=== PATIENT | male | born 1985 | race Two or more races ===

== ENCOUNTER 2018-12-01 20:28 | Emergency (ER) | payer OTHER ==
[~2018-12-01] VITALS: Ht 177.8 cm; Wt 81.6 kg
[2018-12-01] MEDS ORDERED: NKM (20:36)
--- NOTE | 2018-12-01 20:40 | NUR ---
ED Nurse Note: pt walked in c/o irregular heart beat and weakness, pt states he was at work lifting something heavy and all of sudden felt weak and chills, pt reports in 2015 a doctor stated he has irregular heartbeat. pt AA&ox4, gcs=15, skin warm and dry, resp even and unlabored on RA, -n/v/d, ambulates w/ steady gait. will cont monitor.
--- NOTE | 2018-12-01 20:51 | Emergency Room Report ---
History of Present Illness General Chief Complaint: General Complaint Source: Patient Present Illness HPI Patient is a 33-year-old male presented after increased palpitations and chest tightness after smoking a marijuana vape pen. Patient had reportedly been feeling somewhat tired earlier in the day. He had been moving furniture and had prior episode of feeling tired prior to onset of symptoms. He reports having increased alcohol use over the past few days. He denies any significant vomiting or diarrhea. Patient states he currently feels better. He reports having prior history of premature heart contractions. Allergies: Coded Allergies: No Known Allergies (Unverified , 12/01/18) Patient History Past Medical History: see triage record Reviewed Nursing Documentation: PMH: Agreed; PSxH: Agreed Nursing Documentation-PMH Past Medical History: No Stated History Review of Systems All Other Systems: negative except mentioned in HPI Physical Exam Vital Signs Date Time Temp Pulse Resp B/P (MAP) Pulse Ox O2 Delivery O2 Flow Rate FiO2 12/01/18 20:33 98.4 70 16 131/86 (101) 97 Room Air Sp02 EP Interpretation: reviewed, normal General Appearance: normal inspection, well appearing, no apparent distress, alert, GCS 15 Head: atraumatic ENT: normal ENT inspection, hearing grossly normal, normal voice Neck: normal inspection, full range of motion, supple, no bony tend Respiratory: normal inspection, lungs clear, normal breath sounds, no respiratory distress, no retraction, no wheezing Cardiovascular #1: regular rate, rhythm, no edema Gastrointestinal: normal inspection, normal bowel sounds, non tender, soft, no guarding, no hernia Genitourinary: no CVA tenderness Musculoskeletal: normal inspection, back normal, normal range of motion Neurologic: normal inspection, alert, oriented x3, responsive, core carrier III-XII nml as tested, speech normal Psychiatric: normal inspection, judgement/insight normal, mood/affect normal Skin: no rash Medical Decision Making Diagnostic Impression: Primary Impression: Palpitations ER Course Patient presented for palpitations. Differential diagnosis include was not limited to electro light abnormality, myocardial infarction, arrhythmia among others. Because of complexity of patient's case laboratory testing and imaging studies were ordered. EKG Diagnostic Results Rate: normal Rhythm: NSR ST Segments: no acute changes Last Vital Signs Date Time Temp Pulse Resp B/P (MAP) Pulse Ox O2 Delivery O2 Flow Rate FiO2 12/01/18 20:33 98.4 70 16 131/86 (918) 97 Room Air Tam Palafox MD Dec 01, 2018 20:51
[2018-12-01 20:55] VITALS: BP 131/86
--- NOTE | 2018-12-01 20:55 | NUR ---
ED Nurse Note: EKG done at the bedside, reviewed by Dr. Palafox, per ROBERTH cox, pt moved to 6, report given to TREE Dash and endorsed care.
[2018-12-01 21:11] LABS: BASOPHILS % (AUTO) 0.5 % (0.0-2.0); EOSINOPHILS % (AUTO) 1.2 % (0.0-3.0); HEMATOCRIT 45.5 % (42.0-52.0); HEMOGLOBIN 15.4 G/DL (14.2-18.0); LYMPHOCYTES % (AUTO) 23.6 % (20.0-45.0); MEAN CORPUSCULAR VOLUME 94 FL (80-99); MONOCYTES % (AUTO) 6.9 % (1.0-10.0); NEUTROPHILS % (AUTO) 67.9 % (45.0-75.0); PLATELET COUNT 289 K/UL (150-450); RED BLOOD COUNT 4.85 M/UL (4.70-6.10); RED CELL DISTRIBUTION WIDTH 11.8 % (11.6-14.8); WHITE BLOOD COUNT 10.9 K/UL (4.8-10.8)
[2018-12-01 21:15] LABS: ANION GAP 8 mmol/L (5-15); BLOOD UREA NITROGEN 21 mg/dL (7-18); CALCIUM 9.4 MG/DL (8.5-10.1); CARBON DIOXIDE 31 MMOL/L (21-32); CHLORIDE 100 MMOL/L (98-107); CREATININE 1.2 MG/DL (0.55-1.30); POTASSIUM 3.5 MMOL/L (3.5-5.1); SODIUM 139 MMOL/L (136-145)
[2018-12-01 21:32] LABS: ALANINE AMINOTRANSFERASE 27 U/L (12-78); ALBUMIN 4.4 G/DL (3.4-5.0); ALBUMIN/GLOBULIN RATIO 1.4 (1.0-2.7); ALKALINE PHOSPHATASE 63 U/L (46-116); ASPARTATE AMINO TRANSFERASE 27 U/L (15-37); BILIRUBIN,TOTAL 0.5 MG/DL (0.2-1.0); CKMB 0.9 NG/ML (0.0-3.6); CREATINE KINASE 165 U/L (26-308)
--- NOTE | 2018-12-01 22:01 | NUR ---
ED Nurse Note: pt cleared to be d/c per ERMD, pt discharge and aftercare instruction provided, pt advised to follow up with pcp or return to ed if changes in condition, pt education done via discussion and handout, pt advised to increase fluid intake and avoid caffeine, pt verbalized understanding and agrees with plan, vss, ambulatory w/ steady gait, left w/ all belongings. iv d/c and id band removed.
[2018-12-01 22:02] VITALS: BP 130/79
--- NOTE | 2018-12-02 10:53 | Diagnostic Imaging Report ---
Indication: Chest pain Technique: One view of the chest Comparison: none Findings: Heart size is upper limits normal. The lungs and pleural spaces are clear. Impression: No acute process
== END 2018-12-01 22:02 | disposition home or self-care (01) ==
LOC: EMR 20:51
DX: R00.2 Palpitations (principal); F12.90 Cannabis use, unspecified, uncomplicated; R07.9 Chest pain, unspecified
CPT/HCPCS: 36415; 71045; 80053; 82550; 82553; 83880; 84484; 85025; 93005; 99284; J8499